=== PATIENT | female | born 1935 | race Caucasian/White ===

== ENCOUNTER 2024-03-16 12:09 | Emergency (ER) | payer MEDICARE, MEDICAID, SELFPAY ==
[2024-03-16] VITALS (14 sets, daily range): BP systolic 49–174; BP diastolic 20–95
[2024-03-16 12:16] LABS: Glucose - Point of Care 202 mg/dl (70-99)
[2024-03-16 12:40] LABS: % Basophils 0.7 % (0-2); % Eosinophils 0.5 % (0-6); % Immature Granulocytes 3.2 % (0-0.5); % Lymphocytes 43.3 % (20.5-51.1); % Neutrophils 41.3 % (42.2-75.2); Absolute Basophils 0.1 10^3/uL (0-0.2); Absolute Eosinophils 0.1 10^3/uL (0-0.7); Absolute Immature Granulocytes 0.3 10^3/uL (0-0.05); Absolute Lymphocytes 4.6 10^3/uL (1.2-3.4); Absolute Monocytes 1.2 10^3/uL (0.1-0.6); Absolute Neutrophils 4.4 10^3/uL (1.4-6.5); Hematocrit 41.3 % (37.0-47.0); Hemoglobin 13.5 g/dL (12.0-16.0); Mean Corp Hgb Conc. 32.7 g/dL (33.0-37.0); Mean Corpuscular Volume 91.8 fL (81.0-99.0); Nucleated Red Blood Cells % 0 %; Platelet Count 187 10^3/uL (130-400); Red Cell Dist. Width 13.6 % (11.5-14.5); White Blood Cell Count 10.7 10^3/uL (4.8-10.8)
[2024-03-16] MEDS: LEVOPHED 250 IV (12:40)
--- NOTE | 2024-03-16 12:48 | EDRN ---
IO x2, one placed in field , one in ED.. Left tibia and left Shoulder
[2024-03-16] MEDS: SODIUM BICARBONATE 1150 MEQ IV (12:57)
[2024-03-16 13:00] LABS: Lactic Acid 6.7 mmol/L (0.7-2.0)
[2024-03-16 13:02] LABS: B.E. -16.3 mmol/L; O2 Saturation % 85.7 % (94-98); PCO2 67 mmHg (32-35); PO2 67 mmHg (83-108)
[2024-03-16 13:03] LABS: O2 Therapy 100
[2024-03-16 13:04] LABS: HCO3 15.8 mmol/L (21-28); pH 6.98 (7.35-7.45)
--- NOTE | 2024-03-16 13:10 | ED.GENMED ---
History of Present Illness
General
Chief Complaint: CODE
Source: patient
Exam Limitations: none
Time Seen by Provider: 03/16/24 12:28
Nursing documentation reviewed up to this point in time: agreed with
History of Present Illness
History of Present Illness:
88-year-old female with a history of diabetes who presents to the ER via EMS from [facility] rehab for evaluation of lethargy. She arrives in cardiac arrest with CPR in progress. According to EMS they were called for a change in mental status and
on their arrival patient was minimally responsive and hypotensive; on the way to the hospital patient went into cardiac arrest. She had a left humeral IO placed and was intubated in the field. She received shock x 1 just prior to rolling into the
ER otherwise PEA/asystole. She received epinephrine x1 prehospital. She is listed as a full code.
UPDATE
I spoke to the patient's brother and [id number] after initial evaluation and resuscitation. Apparently patient has been having generalized cognitive decline recently. She has suffered multiple recent falls over the past 2 weeks and was in the
emergency room in [facility] as well as at [facility] and this ultimately resulted in her being placed at [facility] for rehab. She had a concussion but no other serious injuries from the fall. They have been visiting her daily at rehab and noticed
that she is becoming generally more confused. She has been complaining of some pain in the left side over the past few days. Apparently was having some nausea as well.
Review of Systems
Review of Systems
Unable to obtain full review of systems at this time due to: due to acuity
All Other Systems: Not applicable
Phy Exam
Physical Exam
Physical Exam:
General: Unresponsive, CPR in progress
Head: Normocephalic, atraumatic
Eyes: Conjunctiva normal, pupils midrange and sluggish
Throat: Intubated, some blood in ET tube
Neck: Trachea midline, no JVD
Lungs: Bilateral breath sounds present, CPR in progress
Heart: CPR progress, no pulse on initial pulse check
Abd: Soft, non distended
Neuro: Unresponsive
Skin: Cool
Extremities: Cool to the touch, no edema, left humeral IO in place
Scores
Heart Failure Risk
Heart Failure Risk Score: Not Applicable
Heart Score for Chest Pain Patients
STEMI patient?: Not applicable
Withdrawal Assessment of Alcohol
Withdrawal Assessment Completed?: Not applicable
Course
Orders/Labs/Results
Orders:
Orders
03/16/24
Electrocardiogram (*1) Stat
Reason for Study: Chest Pain
Comment: DONE
03/16/24 12:22
EKG [Electrocardiogram (*1)] Urgent
Reason for Study: Other
Other Reason for Exam: s/p cardiac arrest
EKG- Treatment ONCE
CXR Port [CR Chest Portable - 1 View] Stat
Comment:
Reason For Exam: s/p intubation
Reason Study Needs to be Portable: Patient Unstable
03/16/24 12:28
Complete Blood Count/With Diff Urgent
Lactate Level [Lactic Acid] Urgent
03/16/24 12:45
Sterile Water For Inj [Sterile Water For Injection 1000 ml] 1,000 ml Sodium Bicarbonate 150 meq IV 100 mls/hr
03/16/24 12:51
Arterial Blood Gas Stat
%Oxygen/Room Air: 100
03/16/24 12:53
Comprehensive Metabolic Panel Urgent
Blood Culture Urgent
DELPHINE Source: Blood/Venous
Specimen Description:
03/16/24 12:56
PT/INR [Prothrombin Time] Stat
Troponin I Stat
NORepinephrine 4 MG/250 ML [Levophed] 4 mg in 250 ml IV NOW
Initial dose in mcg/min, then titrate:: 2
Titrate to keep:: MAP > 65 mmHg
Titrate by mcg/min:: 1-2 mcg/min
Frequency of titrations (minutes):: 5
Maximum dose in ICU in mcg/min:: 30
Maximum dose in IMU in mcg/min:: 8
Maximum dose in IVU in mcg/min:: 4
Begin to taper infusion when:: Remained at goal for 4hrs
Taper by mcg/min:: 1-2 mcg/min
Frequency of taper (minutes) if patient maintains goal:: 30
Taper to off?: Yes
If infusion off & no longer maintaining goal:: Contact Provider
Abnormal Lab Results
03/16/24 03/16/24 03/16/24
12:14 12:28 12:51
MCHC 32.7 L g/dL
(33.0-37.0)
Abs Immat Gran (auto) 0.3 H 10^3/uL
(0-0.05)
Absolute Lymphs (auto) 4.6 H 10^3/uL
(1.2-3.4)
Absolute Monos (auto) 1.2 H 10^3/uL
(0.1-0.6)
Immature Gran % 3.2 H %
(0-0.5)
Neutrophils % 41.3 L %
(42.2-75.2)
Monocytes % 11.0 H %
(1.7-9.3)
PT
pH 6.98 L*
(7.35-7.45)
pCO2 67 H mmHg
(32-35)
pO2 67 L mmHg
(83-108)
HCO3 15.8 L* mmol/L
(21-28)
ABG O2 Sat (Measured) 85.7 L %
(94-98)
Carbon Dioxide
BUN
Creatinine
Glucose
Lactic Acid 6.7 H* mmol/L
(0.7-2.0)
Calcium
AST
ALT
Troponin I
Total Protein
Albumin
POC Glucose 202 H mg/dl
(70-99)
03/16/24 03/16/24
12:53 12:56
MCHC
Abs Immat Gran (auto)
Absolute Lymphs (auto)
Absolute Monos (auto)
Immature Gran %
Neutrophils %
Monocytes %
PT 22.7 H Sec
(11.4-14.6)
pH
pCO2
pO2
HCO3
ABG O2 Sat (Measured)
Carbon Dioxide 16 L mmol/L
(22-30)
BUN 25 H mg/dl
(7-17)
Creatinine 1.6 H mg/dL
(0.6-1.0)
Glucose 331 H mg/dl
(70-99)
Lactic Acid
Calcium 12.9 H mg/dl
(8.4-10.2)
AST 288 H U/L
(14-36)
ALT 189 H U/L
(0-35)
Troponin I 0.156 H* ng/ml
Total Protein 5.0 L g/dl
(6.3-8.2)
Albumin 2.7 L g/dl
(3.5-5.0)
POC Glucose
03/16/24 12:28
03/16/24 12:53
Vital Signs
Initial and Last Documented VS:
Initial Vital Signs
Pulse Resp
88 28
03/16/24 12:24 03/16/24 12:24
Last Documented Vital Signs
Pulse Resp BP Pulse Ox
92 34 70/54 85
03/16/24 13:10 03/16/24 13:10 03/16/24 13:10 03/16/24 13:10
Procedures
Cardioversion
Indication:: Afib
Performed by:: London Snider MD
Synchronized?: Yes
Energy Used: 200 joules
Number of attempts: 2
Successful?: No
Central Line
Left Femoral:
Indication for procedure:: shock
Procedure completed by: London Snider MD
If no, reason: Emergency procedure
Central line lumen: triple
Number of attempts: 3
Central line complications: other (hematoma)
Additional information:
Unsuccessful x3 attempts (twice in left femoral, once right femoral)--unable to pass wire on either side
MDM/Problems Addressed
Differential Diagnosis Includes:
Acute NM, massive PE, dysrhythmia, CHF, infection/sepsis
MDM/Problems Addressed:
88-year-old female presents in cardiac arrest�initial call was for lethargy and patient was apparently hypotensive and minimally responsive on EMS arrival. She had recent hospitalization and multiple recent falls. She arrives to us with CPR in
progress for a few minutes prehospital. She has a left humeral IO and an ET tube in place. On arrival she was given a milligram of epinephrine, 1 amp of bicarb, 1 amp of calcium. Initial rhythm PEA. After approximately 10 minutes of initial CPR
ROSC obtained. She had 2 subsequent arrest requiring reinitiation of ACLS protocols, additional doses of epinephrine, bicarb given. Approximately 45 minutes of ACLS prior to sustained ROSC. She was noted to be in A-fib with RVR and hypotensive.
Attempted synchronized cardioversion x 2 unsuccessfully remained in A-fib with hypotension. Additional IO line placed due to difficulty obtaining peripheral IV access. Fluids given and Levophed initiated. Chest x-ray reviewed and shows right
mainstem placement of prehospital ET tube�this tube was retracted 3 cm. Usual lab work sent off. Plan for baird CT, broad-spectrum antibiotics. Start IV bicarb infusion.
I was able to speak with the patient's family to discuss current status and prognosis. She is listed as a full code but after a long discussion with her brother and [id number] who are her only family they would like to pursue comfort measures
rather than continued with heroic efforts. They wish to make the patient DNR/DNI and to remove patient off ventilator and pursue comfort measures. They wish to spend some time with their sister and then we will turn off vasopressors and pursue
palliative extubation.
Prior to even palliative extubation patient unfortunately had another cardiac arrest. No palpable pulse, no heart sounds noted. Patient was pronounced at 1:29 PM with her family at the bedside. Discussed with medical administrative assistant (To) who released
patient to family.
*Radiology
Radiology exam reviewed: preliminary read by ED provider (Right mainstem ET tube)
*Pulse Oximetry
Patient hypoxic: yes
*EKG
Interpreted by ED Provider?: Yes
Heart Rate: 135
Rate: tachycardiac
Rhythm: a-fib
Adger: normal axis
Interval: normal interval
QRS Pattern: normal QRS
Ischemia: non-specific ST changes
*Critical Care Note
Total Time (30-74mins, 75-104mins- exclusive of procedures): 54
comment:
Critical care statement: A total of 54 minutes of critical care time was provided for this patient. This includes management of unstable vital signs, evaluation of the patient at bedside, frequent reassessment, discussion with
consultants/hospitalist, and review of pertinent medical records. This time was separate from time utilized to perform any aforementioned documented procedures
Data Reviewed
Review of Other/Old Records Reveals: Records
Source: records and family
Patient Management
Escalation/DeEscalation of care consider admission/obs:
Discussed with family, will pursue comfort measures
ED Attending Note
-
Portions of this chart may have been created with voice recognition software.� Occasional wrong word or��sound alike� substitutions may have occurred due to the inherent limitations of voice recognition software.
Discharge Plan
Departure
Patient Disposition:
Date of Disposition: 03/16/24
Time of Disposition: 13:38
Discharge Problem:
Cardiac arrest
Prescriptions:
No Action
latanoprost 0.005 % Drops
1 drp BOTH EYES HS
acetaminophen [Tylenol] 325 mg Tablet
650 mg PO Q6HPRN PRN (Reason: mild pain)
Theragen Tablet
1 tab PO DAILY
acetaminophen [Tylenol Extra Strength] 500 mg Tablet
1,000 mg PO BID
magnesium hydroxide [Milk of Magnesia] 400 mg/5 mL Suspension
2,400 mg PO [id number] PRN (Reason: constipation)
bisacodyl [Dulcolax (bisacodyl)] 10 mg Suppository
10 mg MN DAILYPRN PRN (Reason: if no bm aftr mom)
Fleet Enema 19-7 gram/118 mL Enema
118 ml MN DAILYPRN PRN (Reason: if no bma ftr dulcolax)
dorzolamide-timolol 22.3-6.8 mg/mL Drops
1 drp BOTH EYES BID
cholecalciferol (vitamin D3) [Vitamin D3] 25 mcg (1,000 unit) Tablet
25 mcg PO DAILY
Senna Plus 8.6-50 mg Capsule
1 tab-cap PO DAILYPRN PRN (Reason: constipation)
Referrals:
Adeel Yoo MD [Family Provider] -
Interventions
Interventions:
*Risk Screen - Suicide Last Done: 03/16/24 12:45
*General Assessment Last Done: 03/16/24 12:45
*Neglect/Abuse Screening Last Done: 03/16/24 12:45
*ED COVID-19 Vaccine History Last Done: 03/16/24 12:45
*Nursing Disposition Last Done: 03/16/24 13:37
ED- Cardiac Assessment Last Done: 03/16/24 12:49
ED- Pulmonary Assessment Last Done: 03/16/24 12:49
Discharge Date and Time
Print Language: CHINESE
Pronouncement of
-
Called to see patient to pronounce.
No spontaneous heart tones or respirations noted.
Patient not responsive to verbal stimuli.
Patient is pronounced .
Time of : 13:29
Date of : 03/16/24
Family Notified: Yes
[2024-03-16 13:14] LABS: ALT (SGPT) 189 U/L (0-35); AST (SGOT) 288 U/L (14-36); Albumin 2.7 g/dl (3.5-5.0); Alkaline Phosphatase 124 U/L (38-126); Blood Urea Nitrogen 25 mg/dl (7-17); Calcium 12.9 mg/dl (8.4-10.2); Carbon Dioxide 16 mmol/L (22-30); Chloride 106 mmol/L (98-107); Glucose 331 mg/dl (70-99); Potassium 3.8 mmol/L (3.5-5.1); Sodium 144 mmol/L (135-145); Total Bilirubin 0.4 mg/dl (0.2-1.3); eGFR 31.02
[2024-03-16 13:17] LABS: INR 1.95; PT 22.7 Sec (11.4-14.6)
[2024-03-16 13:30] LABS: Troponin I 0.156 ng/ml
--- NOTE | 2024-03-16 13:32 | EDRN ---
Patient time of 5028 on 03/16/24- pronounced by MD Tylor Nava
--- NOTE | 2024-03-16 13:33 | EDRN ---
Respiratory at bedside to extubate patient. Family at this time denies autopsy
== END 2024-03-16 15:21 | disposition expired ==
LOC: EMR 12:09
PROVIDERS: EMERGENCY PHYSICIAN Emergency Medicine; FAMILY PHYSICIAN Family Medicine
DX: I46.9 Cardiac arrest, cause unspecified (principal); E11.9 Type 2 diabetes mellitus without complications; I48.91 Unspecified atrial fibrillation; R29.6 Repeated falls; Z46.82 Encounter for fitting and adjustment of non-vascular catheter; Z66 Do not resuscitate
CPT/HCPCS: 99291; 92950; 92960; 96374; 71045; 80053; 82805; 82962; 83605; 84484; 85025; 85610; 87040; 87205; 93005